=== PATIENT | female | born 1990 | race African-American/Black ===

== ENCOUNTER 2020-05-22 21:13 | Emergency (ER) | payer OTHER, MEDICAID ==
[~2020-05-22] VITALS: Ht 154.9 cm; Wt 61.2 kg
[2020-05-22] MEDS ORDERED: HYDROXYZINE PAM25 M1 PO (21:23)
[2020-05-22 22:14] LABS: ABSOLUTE EOSINOPHILS 0.2 thou/uL (0.0-0.7); ABSOLUTE LYMPHOCYTES 2.4 thou/uL (0.8-5.3); ABSOLUTE MONOCYTES 0.4 thou/uL (0.0-1.2); ABSOLUTE NEUTROPHILS 3.1 thou/uL (1.6-8.1); BASOPHILS 0.6 %; EOSINOPHILS 2.6 %; HEMATOCRIT 33.9 % (37.0-47.0); HEMOGLOBIN 11.8 gm/dL (12.0-15.0); LYMPHOCYTES 39.7 %; MCH 26.1 pg (26.0-34.0); MCHC 34.7 g/dL (28.0-37.0); MCV 75.1 fL (80.0-100.0); MONOCYTES 6.9 %; MPV 9.3 fl. (7.2-11.1); NUCLEATED RBCS 0 /100WBC; PLATELET COUNT* 263 thou/uL (150-400); POLYS 50.2 %; RBC 4.52 mil/uL (4.20-5.00); RDW-CV 16.9 % (10.5-14.5); WBC 6.1 thou/uL (4.0-11.0)
[2020-05-22 22:14] LABS: URINE BILIRUBIN NEGATIVE (Negative); URINE BLOOD NEGATIVE (Negative); URINE CLARITY CLEAR; URINE COLOR YELLOW; URINE GLUCOSE-RANDOM NEGATIVE (Negative); URINE KETONES NEGATIVE (Negative); URINE LEUKOCYTES-REFLEX NEGATIVE (Negative); URINE NITRITE-REFLEX NEGATIVE (Negative); URINE PROTEIN NEGATIVE (Negative)
[2020-05-22 22:21] LABS: CALCIUM 8.3 mg/dL (8.5-10.1); CREATININE 0.6 mg/dL (0.6-1.3); POTASSIUM 3.6 mmol/L (3.5-5.1)
[2020-05-22 22:25] LABS: ALBUMIN 3.5 g/dL (3.4-5.0); TOTAL BILIRUBIN 0.3 mg/dL (<0.1-1.0)
[2020-05-22] MEDS ORDERED: VERAPAMIL ER100 MG PO (23:19)
[2020-05-22 23:40] VITALS: BP 138/85
--- NOTE | 2020-05-23 09:53 | EKG ---
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
== END 2020-05-22 23:40 | disposition home or self-care (01) ==
LOC: M.ERS 21:13
PROVIDERS: Personal Emergency Response Attendant
DX: R03.0 Elevated blood-pressure reading, without diagnosis of hypertension (principal); F41.9 Anxiety disorder, unspecified; Z86.2 Personal history of diseases of the blood and blood-forming organs and certain disorders involving the immune mechanism